=== PATIENT | female | born 1990 | race African-American/Black ===

== ENCOUNTER 2021-04-16 08:48 | Emergency (ER) | payer OTHER ==
[~2021-04-16] VITALS: Ht 160 cm; Wt 55.7 kg
[2021-04-16] MEDS ORDERED: NS 1,000 ML IV ONE (11:40)
[2021-04-16] MEDS ORDERED: PERCOCET 5MG/325MG TAB PO ONE (11:40)
[2021-04-16] MEDS ORDERED: LIDOCAINE 1% MDV 20ML VIAL SC ONE (12:10)
--- NOTE | 2021-04-16 13:04 | REP ---
INDICATION: mass in groin on l. please evaluate r side as well. COMPARISON: None. TECHNIQUE: Soft tissue sonography bilateral inguinal regions. FINDINGS: Multiple lymph nodes are noted bilaterally in the inguinal soft tissues. In the right groin soft tissues, there are lymph nodes measuring as follows: 1.5 x 0.8 x 1.2, 2.1 x 0.7 x 1.0, 1.3 by 0.7 x 1.3 cm. All of these have echogenic hilar architecture maintained however several show cortical thickening consistent with adenopathy. In the right groin, There are 4 lymph nodes identified, measured as follows: 1.3 x 0.8 x 1.5, 0.7 x 0.6 x 0.9, 1.6 x 0.9 x 1.1, and 1.3 x 0.4 x 0.8 cm respectively. Similar to the right-sided nodes, these have preserved echogenic hilar fatty architecture but thickened cortical margins. IMPRESSION: Findings of bilateral inguinal lymphadenopathy as above. This is fairly symmetric. Cortical thickening is observed in multiple lymph nodes bilaterally. This is nonspecific and may be reactive inflammatory change. Clinical follow-up is advised. If signs and symptoms do not regress, repeat imaging and or ultrasound-guided fine needle aspiration could be considered for further evaluation <Electronically signed by Rob Flynn > 04/16/21 1300
[2021-04-16 13:08] LABS: BASO % 0.3 % (0.0-1.0); EOS % 0.3 % (0.0-3.0); HEMATOCRIT 38.8 % (36.0-47.0); LYMPH # 1.3 10^3/uL (1.5-5.0); LYMPH % 17.4 % (24.0-44.0); MEAN CORPUSCULAR HEMOGLOBIN 32.7 pg (27.0-33.0); MEAN CORPUSCULAR HGB CONC 33.5 g/dl (32.0-36.5); MEAN CORPUSCULAR VOLUME 97.5 fl (80.0-96.0); MONO # 0.6 10^3/uL (0.0-0.8); MONO % 7.9 % (2.0-8.0); NEUTROPHILS # 5.5 10^3/uL (1.5-8.5); NEUTROPHILS % 73.8 % (36.0-66.0); PLATELET COUNT, AUTOMATED 168 10^3/uL (150-450); RED BLOOD COUNT 3.98 10^6/uL (4.00-5.40); WHITE BLOOD COUNT 7.5 10^3/uL (4.0-10.0)
[2021-04-16 13:33] LABS: ERYTHROCYTE SEDIMENTATION RATE 37 mm/hr (0-20)
[2021-04-16] MEDS ORDERED: BACT800T5 PO (14:35)
[2021-04-16 14:52] VITALS: BP 107/61
--- NOTE | 2021-04-17 14:10 | ED PDOC ---
Post-Departure Follow-Up pelvis us faxed to [facility] for fu Chata Ortiz MD Apr 17, 2021 14:10
== END 2021-04-16 14:59 | disposition home or self-care (01) ==
LOC: M ED 08:48 → EDSEX 08:48 → M ED 14:59
DX: L50.9 Urticaria, unspecified (principal); R59.9 Enlarged lymph nodes, unspecified; F17.200 Nicotine dependence, unspecified, uncomplicated

== ENCOUNTER 2021-08-25 13:40 | Emergency (ER) | payer OTHER ==
[~2021-08-25] VITALS: Ht 162.6 cm; Wt 52.3 kg
[~2021-08-25 13:40] MED LIST: BACT800T5 PO
--- OUTSIDE RECORDS SUMMARY | 2021-08-25 13:45 | CCD ---
Author Author [facility] Organization [facility] Address Unknown Phone Unavailable Care Team Providers Care Dewaxer Name Role Phone Malcom Nick MD Unavailable Unavailable Sandoval, Malcom Aguillon MD Unavailable Unavailable Sandoval, Malcom Aguillon MD Unavailable Unavailable Sandoval, Malcom Aguillon MD Unavailable Unavailable Sandoval, Malcom Aguillon MD Unavailable Unavailable Sandoval, Malcom Aguillon MD Unavailable Unavailable Sandoval, Malcom Aguillon MD Unavailable Unavailable Sandoval, Malcom Aguillon MD Unavailable Unavailable Sandoval, Malcom Aguillon MD Unavailable Unavailable Sandoval, Malcom Aguillon MD Unavailable Unavailable Sandoval, Malcom Aguillon MD Unavailable Unavailable Sandoval, Malcom Aguillon MD Unavailable Unavailable Sandoval, Malcom Aguillon MD Unavailable Unavailable Sandoval, Malcom Aguillon MD Unavailable Unavailable Sandoval, Malcom Aguillon MD Unavailable Unavailable Sandoval, Malcom Aguillon MD Unavailable Unavailable Sandoval, Malcom Aguillon MD Unavailable Unavailable Sandoval, Malcom Aguillon MD Unavailable Unavailable Sandoval, Malcom Aguillon MD Unavailable Unavailable Sandoval, Malcom Aguillon MD Unavailable Unavailable Sandoval, Malcom Aguillon MD Unavailable Unavailable Sandoval, Malcom Aguillon MD Unavailable Unavailable Sandoval, Malcom Aguillon MD Unavailable Unavailable Sandoval, Malcom Aguillon MD Unavailable Unavailable Sandoval, Malcom Aguillon MD Unavailable Unavailable Sandoval, Malcom Aguillon MD Unavailable Unavailable Sandoval, Malcom Aguillon MD Unavailable Unavailable Sandoval, Malcom Aguillon MD Unavailable Unavailable Sandoval, Malcom Aguillon MD Unavailable Unavailable Sandoval, Malcom Aguillon MD Unavailable Unavailable Sandoval, Malcom Aguillon MD Unavailable Unavailable Sandoval, Malocm Aguillon MD Unavailable Unavailable Sandoval, Malcom Aguillon MD Unavailable Unavailable Sandoval, Malcom Aguillon MD Unavailable Unavailable Sandoval, Malcom Aguillon MD Unavailable Unavailable Sandoval, Malcom Aguillon MD Unavailable Unavailable Sandoval, Malcom Aguillon MD Unavailable Unavailable Sandoval, Malcom Aguillon MD Unavailable Unavailable Sandoval, Malcom Aguillon MD Unavailable Unavailable Sandoval, Malcom Aguillon MD Unavailable Unavailable Sandoval, Malcom Aguillon MD Unavailable Unavailable Sandoval, Malcom Aguillon MD Unavailable Unavailable Sandoval, Malcom Aguillon MD Unavailable Unavailable Sandoval, Malcom Aguillon MD Unavailable Unavailable Sandoval, Malcom Aguillon MD Unavailable Unavailable Sandoval, Malcom Aguillon MD Unavailable Unavailable Sandoval, Malcom Aguillon MD Unavailable Unavailable Sandoval, Malcom Aguillon MD Unavailable Unavailable Sandoval, Malcom Aguillon MD Unavailable Unavailable Sandoval, Malcom Aguillon MD Unavailable Unavailable Sandoval, Malcom Aguillon MD Unavailable Unavailable Sandoval, Malcom Aguillon MD Unavailable Unavailable Sandoval, Malcom Aguillon MD Unavailable Unavailable Sandoval, Malcom Aguillon MD Unavailable Unavailable Sandoval, Malcom Aguillon MD Unavailable Unavailable Sandoval, Malcom Aguillon MD Unavailable Unavailable Sandoval, Malcom Aguillon MD Unavailable Unavailable Sandoval, Malcom Aguillon MD Unavailable Unavailable Sandoval, Malcom Aguillon MD Unavailable Unavailable Sandoval, Malcom Aguillon MD Unavailable Unavailable Sandoval, Malcom Aguillon MD Unavailable Unavailable Sandoval, Malcom Aguillon MD Unavailable Unavailable Sandoval, Malcom Aguillon MD Unavailable Unavailable Sandoval, Malcom Aguillon MD Unavailable Unavailable Sandoval, Malcom Aguillon MD Unavailable Unavailable Sandoval, Malcom Aguillon MD Unavailable Unavailable Sandoval, Malcom Aguillon MD Unavailable Unavailable Sandoval, Malcom Aguillon MD Unavailable Unavailable Sandoval, Malcom Aguillon MD Unavailable Unavailable Sandoval, Malcom Aguillon MD Unavailable Unavailable Sandoval, Malcom Aguillon MD Unavailable Unavailable Sandoval, Malcom Aguillon MD Unavailable Unavailable Sandoval, Malcom Aguillon MD Unavailable Unavailable Sandoval, Malcom Aguillon MD Unavailable Unavailable Sandoval, Malcom Aguillon MD Unavailable Unavailable Sandoval, Malcom Aguillon MD Unavailable Unavailable Sandoval, Malcom Aguillon MD Unavailable Unavailable Sandoval, Malcom Aguillon MD Unavailable Unavailable Sandoval, Malcom Aguillon MD Unavailable Unavailable Sandoval, Malcom Aguillon MD Unavailable Unavailable Sandoval, Malcom Aguillon MD Unavailable Unavailable Sandoval, Malcom Aguillon MD Unavailable Unavailable Dwello PA PA, Madison Unavailable Unavailable Dwello PA PA, Madison Unavailable Unavailable Dwello PA PA, Madison Unavailable Unavailable Dwello PA PA, Madison Unavailable Unavailable Dwello PA PA, Madison Unavailable Unavailable Dwello PA PA, Madison Unavailable Unavailable Dwello PA PA, Madison Unavailable Unavailable Ricky Yin MD Unavailable Unavailable Ricky Yin MD Unavailable Unavailable Ricky Yin MD Unavailable Unavailable Ricky Yin MD Unavailable Unavailable Ricky Yin MD Unavailable Unavailable Ricky Yin MD Unavailable Unavailable Ricky Yin MD Unavailable Unavailable Ricky Yin MD Unavailable Unavailable Ricky Yin MD Unavailable Unavailable Ricky Yin MD Unavailable Unavailable Ricky Yin MD Unavailable Unavailable Ricky Yin MD Unavailable Unavailable Ricky Yin MD Unavailable Unavailable Yin, C Maryse Unavailable Unavailable Yin, C Maryse Unavailable Unavailable Yin, C Maryse MD Unavailable Unavailable Yin, C Maryse MD Unavailable Unavailable Yin, C Maryse MD Unavailable Unavailable Yin, C Maryse MD Unavailable Unavailable Yin, C Maryse MD Unavailable Unavailable Yin, C Maryse MD Unavailable Unavailable Yin, C Maryse MD Unavailable Unavailable Yin, C Maryse MD Unavailable Unavailable Yin, C Maryse MD Unavailable Unavailable Yin, C Maryse MD Unavailable Unavailable Re-disclosure Warning The records that you are about to access may contain information from federally-assisted alcohol or drug abuse programs. If such information is present, then the following federally mandated warning applies: This information has been disclosed to you from records protected by federal confidentiality rules (42 CFR part 2). The federal rules prohibit you from making any further disclosure of this information unless further disclosure is expressly permitted by the written consent of the person to whom it pertains or as otherwise permitted by 42 CFR part 2. A general authorization for the release of medical or other information is NOT sufficient for this purpose. The Federal rules restrict any use of the information to criminally investigate or prosecute any alcohol or drug abuse patient.The records that you are about to access may contain highly sensitive health information, the redisclosure of which is protected by Article 27-F of the [facility] Public Health law. If you continue you may have access to information: Regarding HIV / AIDS; Provided by facilities licensed or operated by the [facility] Office of Mental Health; or Provided by the [facility] Office for People With Developmental Disabilities. If such information is present, then the following [facility] mandated warning applies: This information has been disclosed to you from confidential records which are protected by state law. State law prohibits you from making any further disclosure of this information without the specific written consent of the person to whom it pertains, or as otherwise permitted by law. Any unauthorized further disclosure in violation of state law may result in a fine or care home sentence or both. A general authorization for the release of medical or other information is NOT sufficient authorization for further disc losure. Encounters Encounter Providers Location Date Indications Data Source(s ) Attender: Henna Arriaga 0 07/11/2021 10:02:00 AM EDT - 07/11/2021 10:02:00 AM EDT [facility] ([facility]) Attender: Madison Wharton 08:55:00 AM EDT - 07/04/2021 08:55:00 AM EDT [facility] ([facility]) OutpatientOFFICE VISIT, NEW Attender: Madison REILLY [place] 06/29/2021 01:30:00 PM EDT - 06/29/2021 01:30:00 PM EDT Human immunodeficiency virus [HIV] counselingEncounter for screening for human immunodeficiency virusEncntr screen for infections w sexl mode of transmissOther sex counseling [facility] ([facility]) Human immunodeficiency virus [HIV] couns eling Encounter for screening for human immuno deficiency virus Encntr screen for infections w sexl mode of transmiss Other sex counseling Outpatient Attender: Maryse Yin MD 0 01/25/2021 11:48:00 AM EDT - 01/25/2021 12:10:00 PM EDT [facility] ([facility]) Immunizations Vaccine Date Status Description Data Source(s) COVID-19 VACCINE Pfizer 02/14/2021 12:00:00 AM EDT completed [facility] Vaccine Series Complete: NOThis Data was Submitted to [facility] [employer]. Medications No Information Insurance Providers Payer name Policy type / Coverage type Policy ID Covered democrat ID Covered democrat's relationship to liu Policy Liu Plan Information / [id number] Self [id number] Self [id number] [facility] [employer]IVE DUTY [id number] Problems, Conditions, and Diagnoses No Information Surgeries/Procedures Procedure Description Date Indications Data Source(s) CVR Director Of Student Affairs.Svc. STI / H 06/29/2021 12:00:00 AM EDT - 06/29/2021 12:00:00 AM EDT [facility] ([facility]) CVR Director Of Student Affairs.Svc. Contraceptive 06/29/2021 12 :00:00 AM EDT - 06/29/2021 12:00:00 AM EDT [facility] ([facility]) CVR Med.Svc. Height/Weight 06/29/2021 12 :00:00 AM EDT - 06/29/2021 12:00:00 AM EDT [facility] ([facility]) CVR Blood Pressure 06/29/2021 12:00:00 AM EDT - 2020 12:00:00 AM EDT [facility] ([facility]) OFFICE VISIT, NEW 06/29/2021 12:00:00 AM EDT - 021 12:00:00 AM EDT [facility] ([facility]) TRICHOMONAS VAGIN, DIR PROBE 06/29/2021 12:00:00 AM EDT - 06/29/2021 12:00:00 AM EDT [facility] ([facility]) AYALA VAG, DNA, DIR PROBE 06/29/2021 1 2:00:00 AM EDT - 06/29/2021 12:00:00 AM EDT [facility] ([facility]) GENEVA, DNA, DIR PROBE 06/29/2021 12:00 :00 AM EDT - 06/29/2021 12:00:00 AM EDT [facility] ([facility]) SYPHILLIS BLOOD SEROLOGY, QUALITATIVE 12:00:00 AM EDT - 06/29/2021 12:00:00 AM EDT [facility] ([facility]) HTLV/HIV SERUM TEST 06/29/2021 12:00:00 AM EDT - 06/29 12:00:00 AM EDT [facility] ([facility]) N.GONORRHOEAE, URINE 06/29/2021 12:00:00 AM EDT - 06/29/2021 12:00:00 AM EDT [facility] ([facility]) CHYLMD TRACH, URINE 06/29/2021 12:00:00 AM EDT - 06/29 12:00:00 AM EDT [facility] ([facility]) Results ID Date Data Source [id number] 06/29/2021 12:00:00 AM EDT [facility] ([facility]) Name Value Range Interpretation Code Description Data Katelyn rce(s) Supporting Document(s) Negative Normal (applies to non-numeric resul ts) Urine CT/GC Combo - GC [facility] ([facility]) : NoThis information has been di sclosed to you from confidential records which are protected by law. Privacy laws prohibityou from making any further disclosure of this information without the specific written consent of the person to whom itpertains, or otherwise permitted by law. Any unauthorized further disclosure in violation of the law may result in a fineor care home sentence or both. A general authorization for the release of medical or other information is not, except inlimited circumstances set forth in this part, sufficient authorization for further disclosure.This document contains private and confidential health information protected by state and federal law. If youhave received this document in error, please call the [employer] for CD[employer] at ext [phone] [email or web address] [email or web address] Performed by: JATIN ([id number]) ID Date Data Source [id number] 06/29/2021 12:00:00 AM EDT [facility] ([facility]) Name Value Range Interpretation Code Description Data Katelyn rce(s) Supporting Document(s) Negative Normal (applies to non-numeric resul ts) Urine CT/GC Combo - CT [facility] ID Date Data Source [id number] 06/29/2021 12:00:00 AM EDT [facility] ([facility]) Name Value Range Interpretation Code Description Data Katelyn rce(s) Supporting Document(s) BRODY Non-reactive Normal (applies to non-numeric results) Syphilis [facility] ([facility]) Infection with T. pallidum (cause of syp hilis) unlikely (earlyprimary syphilis cannot be excluded). Requestadditional testing if syphilis is clinically suspected.BRODY: Chemiluminescence immunoassay Performed by: JATIN ([id number]) ID Date Data Source [id number] 06/29/2021 12:00:00 AM EDT [facility] ([facility]) Name Value Range Interpretation Code Description Data Katelyn rce(s) Supporting Document(s) HIV-1/2 Non-reactive Normal (applies to n on-numeric results) HIV-1/HIV-2 Ag/Ab [facility] ([facility]) The HIV Antigen (Ag)/Antibody (Ab) Combo ChemiluminescentMicroparticle Immunoassay (CMIA) is used for the simultaneousdetection of both the HIV-1 p24 Antigen and Antibodyto HIV-1 and for the Antibody to HIV-2. Performed by: JATIN ([id number]) ID Date Data Source [id number] 06/29/2021 12:00:00 AM EDT [facility] ([facility]) Name Value Range Interpretation Code Description Data Katelyn rce(s) Supporting Document(s) Not Detected Not Detected Trichomonas vaginalis [facility] ([facility]) Not Detected Not Detected Geneva species [facility] ([facility]) A positive (detected) result for Geneva , Gardnerella and/or Trichomonas means nucleic acid for Geneva species,G. vaginalis and/or T. vaginalis, respectively is presentin the sample and indicates the patient has candidiasis,bacterial vaginosis, and/or trichomoniasis when consistentwith clinical signs and symptoms. Simultaneous infectionsby more than one organism are common.Negative results (not detected) for [place], Gardnerella orTrichomonas tests suggest the patient does not havecandidiasis, bacterial vaginosis and/or trichomoniasis,respectively, when consistent with clinical signs andsymptoms. Performed by: JATIN ([id number]) DETECTED Not Detected Abnormal (applies to non-num colby results) Gardnerella vaginalis [facility] ([facility]) ID Date Data Source [id number] 01/28/2021 01:33:00 AM EDT [facility] Name Value Range Interpretation Code Description Data Katelyn rce(s) Supporting Document(s) COVID-19 RT-PCR FINISHING ROOM SUPERVISOR SWAB Not Detected [facility] A not detected (negative) test result fo r this test means that SARS-CoV-2 RNA was not present in the specimen above the limit ofdetection. Laboratory test results should always be considered in thecontext of clinical observations and epidemiological data in making afinal diagnosis and patient management decisions. Results will bereported to government agencies as required.This test has received Emergency Use Authorization (EUA). We will continue to follow federal and state requirements for COVID-19 reporting. This test has been authorized only for the detection of RNAfrom SARS-CoV-2 virus and diagnosis of SARS-CoV-2 virus infection, notfor any other viruses or pathogens. This test is only authorized for the duration of the declaration that circumstances exist justifying the authorization of the emergency use of in vitro diagnostic tests for detection of SARS-CoV-2 virus and/or diagnosis of SARS-CoV-2 virusinfection under section 564(b)(1) of the Act, 21 U.S.C. section 360bbb-3(b)(1), unless the authorization is terminated or revoked sooner. We will continue to follow federal and state requirements for both notification of results and any confirmatory testing that is required by another agency. This test was developed and its performance characteristics determined by [facility] and verified at [facility]. It has not been cleared or approved by the U.S. Food and Drug Administration for diagnostic use. This test has been authorized by FDA under an EUA for use by authorized laboratories. Results should be used in conjunction with clinical findings, and should not form the sole basis for a diagnosis or treatment decision. Methods: SARS-CoV-2 Multiplex RT-PCR Assay ID Date Data Source [id number] 01/25/2021 12:00:00 PM EDT [facility] Name Value Range Interpretation Code Description Data Katelyn rce(s) Supporting Document(s) SARS-CoV-2 (COVID-19) N gene [Presence] in Respiratory specimen by SID with probe detection NEGATIVE [facility] This lab was ordered by [facility] and reported by [facility]. ID Date Data Source [id number] 01/25/2021 12:00:00 AM EDT [facility] Name Value Range Interpretation Code Description Data Katelyn rce(s) Supporting Document(s) Carestart Rapid COVID Antigen Test Negative [facility] This lab was reported by [facility]. Procedure Social History Code Duration Value Status Description Data Source(s ) Smoking 07/11/2021 12:00:00 AM EDT Never smoker completed Never s moker [facility] ([facility]) Vital Signs ID Date Data Source UNK Name Value Range Interpretation Code Description Data Source(s) Body height 162.56 cm 162.56 cm [facility] Body weight 54.431 kg 54.431 kg [facility]) Systolic blood pressure 113 mm[Hg] 113 mm[Hg] N [facility] ([facility]) Diastolic blood pressure 71 mm[Hg] 71 mm[Hg] [facility] ([facility]) Body mass index (BMI) [Ratio] 20.60 kg/m2 20.60 kg/m2 [facility] ([facility])
--- OUTSIDE RECORDS SUMMARY | 2021-08-25 13:45 | CCD | Continuity of Care Document ---
Author Author [facility] Organization [facility] Address [address] [place] [address] Phone Care Team Providers Care Refuse Laborer Name Role Phone Madison Kemp Unavailable Unavailable Allergies, Adverse Reactions, Alerts Substance Reaction Status Criticality No Known Allergies Active No Information Medications Medication Instructions Dosage Effective Dates (start - stop) Sta tus Comments No Drug Therapy Prescribed Problems Condition Effective Dates (start - stop) Clinical Status C omments Other sex counseling Encntr screen for infections w sexl mode of transmiss Encounter for screening for human immunodeficiency virus Human immunodeficiency virus [HIV] counseling Procedures Procedure Date No Information Results Test Name Date and Time Measure Units Reference Range Abnormal Flag St atus Comments No Information Advance Directives Directive Yes / No Effective Date File Name No Information Encounters Encounter Description Practice Location Reason(s) For Visit Diagnose s Date Provider Providers Copied on Encounter [facility], [address] [place] [address], [id number], tel:[phone] [facility] No Information Olesya Lundy. [address] [place] [address], [id number], [place]. tel:[phone] [facility], [address] [place] [address], [id number], tel:[phone] [facility] Other sex counselin gEncntr screen for infections w sexl mode of transmissEncounter for screening for human immunodeficiency virusHuman immunodeficiency virus [HIV] counseling Jason Lundy. [address] [place] [address], [id number], . tel:[phone] Referring Provider: Madison Gomez, [address], [place], [id number]. tel:[phone] Family History Family Member Diagnosis Age At Onset No Information Immunizations Vaccine Date Status Comments No Information Payers Payer name Insurance type Covered alliance party ID Authorization(s ) FPBP PRESUMPTIVE ELIGIBILITY [facility] Social History Type Description Quantity Date Captured Comments Alcohol Use Details Unknown Caffeine Use Details Unknown Tobacco Use Status No Information Smoking Status Never smoker Sex Female Vital Signs Date / Time: Height Weight BMI Pulse Rate Blood Pressure Temperatu re Respiratory Rate Body Surface Area Head Circumference BMI percentile Pulse Ox In haled Ox No Information Chief Complaint And Reason For Visit No Information Reason For Referral Reason For Referral No Information Plan Of Treatment Date Type Action Status No Information History Of Present Illness Encounter Date Complaint History Of Present I llness No Information Functional Status Date Functional Assessment No Information Medications Administered Medication Instructions Dosage Effective Dates (start - stop) Sta tus Comments No Drug Therapy Prescribed Instructions Date Instruction Additional Informati on No Information Assessments Type Assessment Date No Information Goals Health Concern Goal Type Priority Status Date No Information Medical Equipment Description Device [place] Device Identifier Effective Alan es (start - stop) Status No Information Mental Status Date Cognitive Assessment No Information Health Concerns Observation Date No Information Concern Status Date No Information Physical Examination Exam Findings Details No Information
--- OUTSIDE RECORDS SUMMARY | 2021-08-25 13:45 | CCD | Continuity of Care Document ---
Author Author [facility] Organization [facility] Address Unknown Phone Unavailable Care Team Providers Care Programming Specialist Name Role Phone Henna Nick MD Unavailable Unavailable Allergies, Adverse Reactions, Alerts Substance [...] Date Provider Providers Copied on Encounter [facility], [address] [place] [address], [address] [place] [address], tel:[phone] PPDOROTHYCHAPITO [place] No Information Sandoval Aguillon. [address] [place] [address], [address] [place] [address], . tel:[phone] [facility], [address] [place] [address], [id number], tel:[phone] PPNCNY [place] Other sex counselin gEncntr screen for infections w sexl mode of transmissEncounter for screening for human immunodeficiency virusHuman immunodeficiency virus [HIV] counseling Jason Lundy. [address] [place] [address], [id number], . tel:[phone] Referring Provider: Madison Gomez, [address] [place] [address], [id number]. tel:[phone] Family History Family Member Diagnosis Age At Onset No Information Immunizations Vaccine Date Status Comments No Information Payers Payer name Insurance type Covered constitution party ID Authorization(s ) FPBP PRESUMPTIVE ELIGIBILITY [...] Date No Information Medical Equipment Description Device Keavy Device Identifier Effective Alan es (start - stop) Status No Information Mental Status Date Cognitive Assessment No Information Health Concerns Observation Date No Information Concern Status Date No Information Physical Examination Exam Findings Details No Information
--- OUTSIDE RECORDS SUMMARY | 2021-08-25 13:45 | CCD | Continuity of Care Document ---
Author Author [facility] Organization [facility] Address Unknown Phone Unavailable Care Team Providers Care Manager Women Name Role Phone Dwello TUAN, Madison Lundy Unavailable Unavailable Allergies, Adverse Reactions, Alerts Substance [...] immunodeficiency virus [HIV] counseling Procedures Procedure Date CHYLMD TRACH, URINE N.GONORRHOEAE, URINE HTLV/HIV SERUM TEST SYPHILLIS BLOOD SEROLOGY, QUALITATIVE GENEVA, DNA, DIR PROBE AYALA VAG, DNA, DIR PROBE TRICHOMONAS VAGIN, DIR PROBE OFFICE VISIT, NEW CVR Blood Pressure CVR Med.Svc. Height/Weight CVR Outpatient Program Coordinator.Svc. Contraceptive CVR Outpatient Program Coordinator.Svc. STI / H Results Test Name Date and Time Measure Units Reference Range Abnormal Flag St atus Comments Panel Description: Affirm-Vaginitis Panel Final Trichomonas vaginalis 00:00:00 Not Detected Not Dete cted Final Performed by:
CDD ([id number])

Gardnerella vaginalis 00:00:00 DETECTED Not Detected A Final Performed by:
CDD ([id number])

Geneva species 00:00:00 Not Detected Not Detected Final A positive (detected) result for Geneva, Gardnerella and/or Trichomonas means nucleic acid for [...] and/or trichomoniasis,respectively, when consistent with clinical signs andsymptoms.& lt;br/>
Performed by:
CDD ([id number])

Panel Description: HIV-1/HIV-2 Ag/Ab Final HIV-1/HIV-2 Ag/Ab 00:00:00 HIV-1/2 Non-reactive N Final The HIV Antigen (Ag)/Antibody (Ab) Combo ChemiluminescentMicroparticle Immunoassay (CMIA) is used for the simultaneousdetection of both the HIV-1 p24 Antigen and Antibodyto HIV-1 and for the Antibody to HIV-2.

Performed by:
CDD ([id number])

Panel Description: Syphilis Final Syphilis 00:00:00 BRODY Non-reactive N F inal Infection with T. pallidum (cause of syphilis) unlikely (earlyprimary syphilis cannot be excluded). Requestadditional testing if syphilis is clinically suspected.BRODY: Chemiluminescence immunoassay

Performed by:
CDD ([id number])

Panel Description: Chlamydia trachomatis rRNA [Presence] in Specimen by SID with probe detection Final Urine CT/GC Combo - CT 00:00:00 Negative N Final Performed by:
CDD ([id number])

Panel Description: Amplified GC - Urine Final Urine CT/GC Combo - GC 00:00:00 Negative N Final : NoThis information has been disclosed to you from confidential records which are protected by law. Privacy laws prohibityou from making any further disclosure of this information without the specific written consent of the person to whom itpertains, or otherwise permitted by law. Any unauthorized further disclosure in violation of the law may result in a fineor group home sentence or both. A general authorization for the release of medical or other information is not, except inlimited circumstances set forth in this part, sufficient authorization for further disclosure.This document contains private and confidential health information protected by state and federal law. If youhave received this document in error, please call the [employer] for CDD at ext [phone] ore-mail [email or web address]

Performed by:
CDD ([id number])

Advance Directives Directive Yes / No Effective Date File Name No Information Encounters Encounter Description Practice Location Reason(s) For Visit Diagnose s Date Provider Providers Copied on Encounter OFFICE VISIT, NEW [facility], [address] [place] [address], [id number], tel:[phone] [facility] STI Exposure/Screening/Testing (chief complaint) Other sex counselingEncntr screen for infections w sexl mode of transmissEncounter for screening for human immunodeficiency virusHuman immunodeficiency virus [HIV] counseling Jason Lundy. [address] [place] [address], [id number], . tel:[phone] Referring Provider: Madison Gomez, [address] [place] [address], [id number]. tel:[phone] Family History Family Member Diagnosis Age At Onset No Information Immunizations Vaccine Date Status Comments No Information Payers Payer name Insurance type Covered libertarian ID Authorization(s ) FPBP PRESUMPTIVE ELIGIBILITY [facility] Social History Type Description Quantity Date Captured Comments Alcohol Use Details Unknown Caffeine Use Details Unknown Tobacco Use Status Never smoked tobacco Smoking Status Never smoker Sex Female Vital Signs Date / Time: Height Weight BMI Pulse Rate Blood Pressure Temperatu re Respiratory Rate Body Surface Area Head Circumference BMI percentile Pulse Ox In haled Ox 2:03 PM 64.00 in 120.00 lbs 20.60 kg/meter(2) 113/71 m m[Hg] Chief Complaint And Reason For Visit Most recent encounter only, dated '06/29/2021 13:30'. STI Exposure/Screening/Testing (chief complaint) Reason For Referral Reason For Referral No [...] on No Information Assessments Type Assessment Date assessment Other sex counseling assessment Encntr screen for infections w sexl mode of transmiss assessment Encounter for screening for human immuno deficiency virus assessment Human immunodeficiency virus [HIV] couns eling Goals Health Concern Goal Type Priority Status Date No Information Medical Equipment Description Device [place] Device Identifier Effective Alan es (start - stop) Status No Information Mental Status Date Cognitive Assessment Orientation - Oriented to ti me, place, person, situation.Normal Orientation Health Concerns Observation Date No Information Concern Status Date No Information Physical Examination Exam Findings Details Neurological Normal Level of consciousne ss - Normal. Orientation - Normal. Psychiatric Normal Orientation - Dickinson ed to time, place, person & situation.
--- NOTE | 2021-08-25 14:25 | REP ---
INDICATION: TRAUMA COMPARISON: None. TECHNIQUE: Four views right hand. FINDINGS: There is no evidence of acute fracture, dislocation, or intrinsic bone disease. IMPRESSION: No fracture or dislocation. <Electronically signed by Bryant Sharp > 08/25/21 [id number]
[2021-08-25] MEDS ORDERED: LIDOCAINE 2% MDV 20ML VIAL SC ONE (17:20)
--- NOTE | 2021-08-25 17:36 | REP ---
INDICATION: trauma COMPARISON: None. TECHNIQUE: Three views right shoulder. FINDINGS: There is no evidence of acute fracture, dislocation, or intrinsic bone disease. IMPRESSION: No fracture or dislocation. <Electronically signed by Bryant Sharp > 08/25/21 1567
[2021-08-25] MEDS ORDERED: CEPHALEXIN 500 MG CAP PO ONE (17:40)
[2021-08-25] MEDS ORDERED: NEOSPORIN OINT 0.9 GM PKT TOP ONE (17:55)
[2021-08-25] MEDS ORDERED: CEPH500C PO (17:55)
[2021-08-25] MEDS ORDERED: BACI500O8 TOP (18:10)
--- OUTSIDE RECORDS SUMMARY | 2021-08-25 18:28 | CCD ---
Author Author [facility] Organization [facility] Address Unknown Phone Unavailable Care Team Providers Care Docket Clerk Name Role Phone Malcom Nick MD Unavailable [...] Malcom Aguillon MD Unavailable Unavailable Sandoval, Malcom Agulilon MD Unavailable Unavailable Sandoval, Malcom Aguillon MD [...] is protected by Article 27-F of the [facility] Public Health law. If you continue you may have access to information: Regarding HIV / AIDS; Provided by facilities licensed or operated by the [facility] Office of Mental Health; or Provided by the [facility] Office for People With Developmental Disabilities. If such information is present, then the following [facility] mandated warning applies: This information has [...] law may result in a fine or half-way sentence or both. A general authorization for the release of medical or other information is NOT sufficient authorization for further disc losure. Encounters Encounter Providers Location Date Indications Data Source(s ) Attender: Henna Arriaga 0 07/11/2021 10:02:00 AM EDT - 07/11/2021 10:02:00 AM EDT [facility] ([facility]) Attender: Madison Wharton 08:55:00 AM EDT - 07/04/2021 08:55:00 AM EDT [facility] ([facility] [place]ILL[place] 06/29/2021 01:30:00 PM EDT - 06/29/2021 01:30:00 PM EDT Human immunodeficiency virus [HIV] counselingEncounter for screening for human immunodeficiency virusEncntr screen for infections w sexl mode of transmissOther sex counseling [facility] ([facility]) Human immunodeficiency virus [HIV] couns eling Encounter [...] Series Complete: NOThis Data was Submitted to [facility] Via [employer]. Medications No Information Insurance Providers Payer name Policy type / Coverage type Policy ID Covered constitution party ID Covered constitution party's relationship to liu Policy Liu Plan Information / [id number] Self [id number] / [id number] Self 01 [id number] [facility] [employer] [id number] Problems, Conditions, and Diagnoses No Information Surgeries/Procedures Procedure Description Date Indications Data Source(s) CVR Respiratory Care Program Director.Svc. STI / H 06/29/2021 12:00:00 AM EDT - 06/29/2021 12:00:00 AM EDT [facility] ([facility]) CVR Respiratory Care Program Director.Svc. Contraceptive 06/29/2021 12 :00:00 AM EDT - 06/29/2021 12:00:00 AM EDT [facility] ([facility]) CVR Med.Svc. Height/Weight 06/29/2021 12 :00:00 AM EDT - 06/29/2021 12:00:00 AM EDT [facility] ([facility]) CVR Blood Pressure 06/29/2021 12:00:00 AM EDT - 2020 12:00:00 AM EDT [facility] ([facility]) OFFICE VISIT, NEW 06/29/2021 12:00:00 AM EDT - 021 12:00:00 AM EDT [facility] ([facility]) TRICHOMONAS VAGIN, DIR PROBE 06/29/2021 12:00:00 AM EDT - 06/29/2021 12:00:00 AM EDT [facility] ([facility]) AYALA VAG, DNA, DIR PROBE 06/29/2021 1 2:00:00 AM EDT - 06/29/2021 12:00:00 AM EDT [facility] ([facility]) GENEVA, DNA, DIR PROBE 06/29/2021 12:00 :00 AM EDT - 06/29/2021 12:00:00 AM EDT [facility] ([facility]) SYPHILLIS BLOOD SEROLOGY, QUALITATIVE 12:00:00 AM EDT - 06/29/2021 12:00:00 AM EDT [facility] ([facility]) HTLV/HIV SERUM TEST 06/29/2021 12:00:00 AM EDT - 06/29 12:00:00 AM EDT [facility] ([facility]) N.GONORRHOEAE, URINE 06/29/2021 12:00:00 AM EDT - 06/29/2021 12:00:00 AM EDT [facility] ([facility]) CHYLMD TRACH, URINE 06/29/2021 12:00:00 AM EDT - 06/29 12:00:00 AM EDT [facility] ([facility]) Results ID Date Data Source [id number] 06/29/2021 12:00:00 AM EDT [facility] ([facility]) Name Value Range Interpretation Code Description Data Katelyn rce(s) Supporting Document(s) Negative Normal (applies to non-numeric resul ts) Urine CT/GC Combo - GC [facility] ([facility]) : NoThis information has been di sclosed to you from confidential records which are protected by law. Privacy laws prohibityou from making any further disclosure of this information without the specific written consent of the person to whom itpertains, or otherwise permitted by law. Any unauthorized further disclosure in violation of the law may result in a fineor half-way sentence or both. A general authorization for the release of medical or other information is not, except inlimited circumstances set forth in this part, sufficient authorization for further disclosure.This document contains private and confidential health information protected by state and federal law. If youhave received this document in error, please call the [employer] for CDD at ext [phone] ore-mail [email or web address] Performed by: JATIN ([id number]) ID Date Data Source [id number] 06/29/2021 12:00:00 AM EDT [facility] ([facility]) Name Value Range Interpretation Code Description Data Katelyn rce(s) Supporting Document(s) Negative Normal (applies to non-numeric resul ts) Urine CT/GC Combo - CT [facility] ID Date Data Source [id number] 06/29/2021 12:00:00 AM EDT [facility] ([facility]) Name Value Range Interpretation Code Description Data Katelyn rce(s) Supporting Document(s) BRODY Non-reactive Normal (applies to non-numeric results) Syphilis [facility] ([facility]) Infection with T. pallidum (cause of syp hilis) unlikely (earlyprimary syphilis cannot be excluded). Requestadditional testing if syphilis is clinically suspected.BRODY: Chemiluminescence immunoassay Performed by: JATIN ([id number]) ID Date Data Source [id number] 06/29/2021 12:00:00 AM EDT [facility] ([facility]) Name Value Range Interpretation Code Description Data Katelyn rce(s) Supporting Document(s) HIV-1/2 Non-reactive Normal (applies to n on-numeric results) HIV-1/HIV-2 Ag/Ab [facility] ([facility]) The HIV Antigen (Ag)/Antibody (Ab) Combo ChemiluminescentMicroparticle Immunoassay (CMIA) is used for the simultaneousdetection of both the HIV-1 p24 Antigen and Antibodyto HIV-1 and for the Antibody to HIV-2. Performed by: JATIN ([id number]) ID Date Data Source [id number] 06/29/2021 12:00:00 AM EDT [facility] ([facility]) Name Value Range Interpretation Code Description Data Katelyn rce(s) Supporting Document(s) Not Detected Not Detected Trichomonas vaginalis [facility] ([facility]) Not Detected Not Detected Geneva species [facility] ([facility]) A positive (detected) result for Geneva , [...] with clinical signs andsymptoms. Performed by: JATIN ([id number]) DETECTED Not Detected Abnormal (applies to non-num colby results) Gardnerella vaginalis [facility] ([facility]) ID Date Data Source [id number] 01/28/2021 01:33:00 AM EDT [facility] Name Value Range Interpretation Code Description Data Katelyn rce(s) Supporting Document(s) COVID-19 RT-PCR TOP LIFT NAILER SWAB Not Detected [facility] A not detected (negative) test result [...] developed and its performance characteristics determined by [employer] and verified at [employer]. It has not been cleared or approved by the U.S. Food and Drug Administration for diagnostic use. This test has been authorized by FDA under an EUA for use by authorized laboratories. Results should be used in conjunction with clinical findings, and should not form the sole basis for a diagnosis or treatment decision. Methods: SARS-CoV-2 Multiplex RT-PCR Assay ID Date Data Source [id number] 01/25/2021 12:00:00 PM EDT [facility] Name Value Range Interpretation Code Description Data Katelyn rce(s) Supporting Document(s) SARS-CoV-2 (COVID-19) N gene [Presence] in Respiratory specimen by SID with probe detection NEGATIVE [facility] This lab was ordered by [facility] and reported by [employer]. ID Date Data Source [id number] 01/25/2021 12:00:00 AM EDT [facility] Name Value Range Interpretation Code Description Data Katelyn rce(s) Supporting Document(s) Carestart Rapid COVID Antigen Test Negative [facility] This lab was reported by Tommy [facility]. Procedure Social History Code Duration Value Status Description Data Source(s ) Smoking 07/11/2021 12:00:00 AM EDT Never smoker completed Never s moker [facility] ([facility]) Vital Signs ID Date Data Source UNK Name Value Range Interpretation Code Description Data Source(s) Body height 162.56 cm 162.56 cm [facility] Body weight 54.431 kg 54.431 kg [facility]) Systolic blood pressure 113 mm[Hg] 113 mm[Hg] N [facility] ([facility]) Diastolic blood pressure 71 mm[Hg] 71 mm[Hg] [facility] ([facility]) Body mass index (BMI) [Ratio] 20.60 kg/m2 20.60 kg/m2 [facility] ([facility])
[2021-08-25 18:34] VITALS: BP 123/64
== END 2021-08-25 18:35 | disposition home or self-care (01) ==
LOC: M ED 13:40
DX: S61.212A Laceration without foreign body of right middle finger without damage to nail, initial encounter (principal); S51.811A Laceration without foreign body of right forearm, initial encounter; S43.401A Unspecified sprain of right shoulder joint, initial encounter; T14.8XXA Other injury of unspecified body region, initial encounter; W01.0XXA Fall on same level from slipping, tripping and stumbling without subsequent striking against object, initial encounter; Y92.89 Other specified places as the place of occurrence of the external cause